=== PATIENT | male | born 1955 | race African-American/Black ===

== ENCOUNTER 2017-08-13 14:50 | Emergency (ER) | payer MEDICARE ==
[~2017-08-13] VITALS: Ht 165.1 cm; Wt 57.0 kg
[2017-08-13] MEDS ORDERED: KETOROLAC 60MG/2ML VIAL IM ONE (20:15)
[2017-08-13 20:48] VITALS: BP 145/99
== END 2017-08-13 20:48 | disposition home or self-care (01) ==
LOC: ER 16:07
DX: M25.512 Pain in left shoulder (principal); F17.200 Nicotine dependence, unspecified, uncomplicated; J45.909 Unspecified asthma, uncomplicated; Z88.0 Allergy status to penicillin
CPT/HCPCS: 96372; 99283; J1885